=== PATIENT | male | born 1965 | race Caucasian/White ===

== ENCOUNTER 2016-08-26 21:31 | Inpatient (IN) ==
[2016-08-26] MEDS ORDERED: 0.9 % Sodium Chloride 1,000 ML IVC ONE (21:40)
[2016-08-26] MEDS ORDERED: *HR* Atropine Sulfate 1 MG/10 ML SYRINGE IVP STA (21:43)
--- NOTE | 2016-08-26 21:46 | Emergency Department Note ---
Disposition Clinical Impression: AV block, 3rd degree, Bradycardia, Weakness Disposition: Admitted As Inpatient Condition: Fair General Adult HPI - General Chief complaint: ED Seizure Stated complaint: seizure/low HR Time Seen by Provider: 08/26/16 21:40 Source: patient Mode of arrival: ambulatory Nursing Notes Reviewed: Yes Vital Signs Reviewed: Yes - History of Present Illness HPI Narrative: Patient brought in for evaluation after concern for seizure. He describes bending over to do some yard work when he became significantly lightheaded and dizzy. Patient ended up losing consciousness. Regain consciousness after a short time with some mild confusion and then lost consciousness again. The patient was brought to the emergency department he was found to have a heart rate in the low 30s. Patient complaining of fatigue and generalized weakness. Patient has no specific pain complaints. Patient's neck is nontender to palpation. Head is atraumatic. Patient has full range of motion of his neck with no neurologic symptoms. On the monitor the patient has what appears to be third-degree AV block. No previous cardiac history although he has undergone investigation including JERALD as well as exercise stress test in the past. Patient has no chest pain or shortness of breath this time. - Related Data Home Medications Medication Instructions Recorded Confirmed Albuterol Sulfate [Proair Hfa] 1 puff IH QID 08/26/16 08/26/16 Budesonide/Formoterol 80/4.5 1 puff IH BID 08/26/16 08/26/16 [Symbicort 80/4.5] Lacosamide [Vimpat] 100 mg PO DAILY 08/26/16 08/26/16 LevETIRAcetam [Keppra] 1,500 mg PO BID 08/26/16 08/26/16 Sertraline [Zoloft] 200 mg PO DAILY 08/26/16 08/26/16 Allergies Allergy/AdvReac Type Severity Reaction Status Date / Time No Known Allergies Allergy Verified 08/26/16 22:04 Review of Systems: CONSTITUTIONAL: No weight loss, fever, chills, weakness or fatigue. HEENT: Eyes: No visual changes. Ears, Nose, Throat: No hearing loss, difficulty talking or unable to swallow. SKIN: No rash or itching. CARDIOVASCULAR: No chest pain, chest pressure or chest discomfort. No palpitations or edema. RESPIRATORY: No shortness of breath, cough or sputum. GASTROINTESTINAL: No anorexia, nausea, vomiting or diarrhea. No abdominal pain or blood. GENITOURINARY: No burning on urination or hematuria. NEUROLOGICAL: No headache, dizziness, syncope, paralysis, ataxia, numbness or tingling in the extremities. No change in bowel or bladder control. MUSCULOSKELETAL: No muscle pain, back pain, joint pain or stiffness. Physical Exam General appearance: NAD, conversant Eyes: anicteric sclerae, moist conjunctivae; PERRL HENT: Atraumatic; oropharynx clear with moist mucous membranes and no mucosal ulcerations Neck: Normal inspection; Trachea midline; FROM, supple Lungs: CTA, with normal respiratory effort and no intercostal retractions CV: Bradycardia Abdomen: Soft, non-tender; no rebound or gaurding Extremities: No peripheral edema or extremity lymphadenopathy Skin: Normal temperature; no rash, ulcers or lesions Psych: Appropriate mood and affect Neuro: alert and oriented to person, place and time Course - Reevaluation(s) Reevaluation #1: Patient with worsening bradycardia as well as worsening weakness. Patient continues to be able to hold conversation. Patient will continue receiving fluids as his blood pressure intermittently drops without fluids wide open. Case is discussed with interventional cardiology. Patient will receive a temporary pacemaker prior to going to the ICU. - Consultations Consultation #1: Discussed with Dr. Faith. Patient will undergo temporary pacemaker. 1112 Dr. Faith had been called and notified of this case and upon its initial presentation. Patient was tolerating his heart rate in the mid 30s with only weakness. Blood pressure was 103 systolically. The plan was to continue to watch him. After receiving 2 L fluids the patient's heart rate has continued to drop and is now in the low 20s. Patient complaining of worsening dizziness and now lightheadedness. We discussed the case with Dr. Faith and the patient will undergo temporary pacemaker. Patient will be placed in the ICU and will be admitted to the hospitalist undergo further investigation of bradycardia. Consultation #2: Discussed with hospitalist. Patient accepted for further investigation of bradycardia Vital Signs Temperature 97.7 F 08/26/16 21:38 Pulse Rate 32 08/26/16 21:38 Respiratory Rate 16 08/26/16 21:38 Blood Pressure 100/69 08/26/16 21:38 O2 Sat by Pulse Oximetry 100 08/26/16 21:38 Temperature 97.7 F 08/26/16 21:38 Pulse Rate 22 08/26/16 23:50 Respiratory Rate 18 08/26/16 23:50 Blood Pressure 81/57 08/26/16 23:50 O2 Sat by Pulse Oximetry 100 08/26/16 23:50 Oxygen Delivery Oxygen Delivery Nasal Cannula Medical Decision Making - Lab Data Result diagrams: 08/26/16 21:55 08/26/16 21:55 Lab Results 08/26/16 08/26/16 08/26/16 Range/Units 21:55 21:55 21:55 WBC 6.2 (4.3-11.1) K/mcL RBC 5.41 (4.19-5.50) M/mcL Hgb 14.8 (12.9-16.9) g/dL Hct 44.2 (37.5-50.1) % MCV 81.7 L (83.0-100.0) fL MCH 27.4 L (28.0-33.3) pg MCHC 33.5 (31.6-35.5) g/dL RDW 15.0 H (11.5-14.5) % Plt Count 151 (140-400) K/mcL MPV 10.5 (9.4-12.4) fL Immature Gran % 0.8 (0-4) % Seg Neutrophils % 59.5 % Lymphocytes % 26.8 % Monocytes % 9.9 % Eosinophils % 2.7 % Basophils % 0.3 % Neutrophils # 3.7 (1.6-8.9) K/mcL Lymphocytes # 1.7 (0.6-4.6) K/mcL Monocytes # 0.6 (0.0-1.3) K/mcL Eosinophils # 0.2 (0.0-0.6) K/mcL Basophils # 0.0 (0.0-0.2) K/mcL PT (9.4-12.1) Seconds INR APTT (26.0-36.0) Seconds Sodium 139 (136-145) mEq/L Potassium 4.0 (3.5-4.5) mEq/L Chloride 107 (98-109) mEq/L Carbon Dioxide 21 (19-29) mEq/L BUN 12 (8-26) mg/dL Creatinine 1.12 (0.72-1.25) mg/dL Est GFR ( Amer) > 60 (> 60) Est GFR (Non-Af Amer) > 60 (> 60) BUN/Creatinine Ratio 11 (6-26) Glucose 118 H (70-99) mg/dL POC Glucose 107 H (58-89) Calculated Osmolality 289 (280-300) Calcium 8.8 (8.6-10.8) mg/dL Phosphorus 2.7 (2.3-4.7) mg/dL Magnesium 1.8 (1.6-2.6) mg/dL Total Bilirubin 1.1 (0.2-1.2) mg/dL AST 68 H (5-34) Units/L ALT 74 H (0-55) Units/L Alkaline Phosphatase 69 (38-126) Units/L Troponin I (0-0.03) ng/mL Serum Total Protein 7.5 (6.0-8.3) g/dL Albumin 3.9 (3.5-5.0) g/dL Globulin 3.6 H (2.4-3.5) g/dL Albumin/Globulin Ratio 1.1 (1.1-2.2) 08/26/16 08/26/16 Range/Units 21:55 22:48 WBC (4.3-11.1) K/mcL RBC (4.19-5.50) M/mcL Hgb (12.9-16.9) g/dL Hct (37.5-50.1) % MCV (83.0-100.0) fL MCH (28.0-33.3) pg MCHC (31.6-35.5) g/dL RDW (11.5-14.5) % Plt Count (140-400) K/mcL MPV (9.4-12.4) fL Immature Gran % (0-4) % Seg Neutrophils % % Lymphocytes % % Monocytes % % Eosinophils % % Basophils % % Neutrophils # (1.6-8.9) K/mcL Lymphocytes # (0.6-4.6) K/mcL Monocytes # (0.0-1.3) K/mcL Eosinophils # (0.0-0.6) K/mcL Basophils # (0.0-0.2) K/mcL PT 12.3 H (9.4-12.1) Seconds INR 1.1 APTT 33.3 (26.0-36.0) Seconds Sodium (136-145) mEq/L Potassium (3.5-4.5) mEq/L Chloride (98-109) mEq/L Carbon Dioxide (19-29) mEq/L BUN (8-26) mg/dL Creatinine (0.72-1.25) mg/dL Est GFR ( Amer) (> 60) Est GFR (Non-Af Amer) (> 60) BUN/Creatinine Ratio (6-26) Glucose (70-99) mg/dL POC Glucose (58-89) Calculated Osmolality (280-300) Calcium (8.6-10.8) mg/dL Phosphorus (2.3-4.7) mg/dL Magnesium (1.6-2.6) mg/dL Total Bilirubin (0.2-1.2) mg/dL AST (5-34) Units/L ALT (0-55) Units/L Alkaline Phosphatase (38-126) Units/L Troponin I 0.00 (0-0.03) ng/mL Serum Total Protein (6.0-8.3) g/dL Albumin (3.5-5.0) g/dL Globulin (2.4-3.5) g/dL Albumin/Globulin Ratio (1.1-2.2) Critical Care Time Critical Care Time: Yes Total Critical Care Time: 90 Attestation: Critical care performed: Time is exclusive of separately billable procedures. Time includes: direct patient care, patient reassessment, coordination of patient care, interpretation of data (laboratory data, radiology data, and respiratory data), review of patient's medical records, medical consultation and documentation of patient care. Procedures included in critical care time: Procedures excluded from critical care time: Attestation Statement - Attestation Attestation: I, Les Rice MD, personally evaluated this patient and discussed their management with the resident physician. I reviewed the resident's note and agree with the documented findings, medical decision making, and plan of care. 51-year-old male presents to the emergency department by ambulance after he had a seizure. Patient states that he bent over forward and became dizzy and this lasting he remembers. He does have a history of seizures he was incontinent of urine. He did not bite his tongue. When EMS arrived he was found to have a heart rate in the 30s. He denies any prior history of heart problems or low heart rate. No hypertension. He denies any chest pain. He was diaphoretic after the seizure but is not now. No shortness of breath. He complains that he just feels weak and dizzy. On arrival here patient had a heart rate around 30-32 with a systolic blood pressure around 105. On examination patient is a well-developed well-nourished male in no acute distress. He is alert and oriented 3. There is no cyanosis or diaphoresis. He has a superficial abrasion to the nose from the fall. No bite borrero on his tongue. Neck is supple and nontender with full range of motion. Chest is nontender to palpation. Breath sounds are clear and equal bilaterally. Heart is regular with a marked bradycardia. Abdomen soft and nontender with normal bowel sounds. No pedal edema. No gross focal neurological deficits. EKG shows a complete heart block with heart rate in the low 30s. Chest x-ray shows some increased pulmonary vascular congestion, possible CHF. Otherwise no acute abnormality. Labs reviewed. Troponin 0.00. Dr. Evans discussed the patient with the test inspection engineer, Dr. Faith, several times. Patient heart rate continued to drop in his blood pressure dropped down to around 88/52. He felt more weak and dizzy. Dr. Faith will come in to take him to the Entrepreneurial Finance Professor for a pacemaker. The hospitalist, Dr. Villatoro, was consulted and accepted admission of the patient.
[2016-08-26 22:03] LABS: Basophils % 0.3 %; Eosinophils # 0.2 K/mcL (0.0-0.6); Eosinophils % 2.7 %; Hematocrit 44.2 % (37.5-50.1); Hemoglobin 14.8 g/dL (12.9-16.9); Immature Granulocytes % 0.8 % (0-4); Lymphocytes # 1.7 K/mcL (0.6-4.6); Lymphocytes % 26.8 %; Mean Corpuscular HGB Conc 33.5 g/dL (31.6-35.5); Mean Corpuscular Hemoglobin 27.4 pg (28.0-33.3); Mean Corpuscular Volume 81.7 fL (83.0-100.0); Mean Platelet Volume 10.5 fL (9.4-12.4); Monocytes # 0.6 K/mcL (0.0-1.3); Monocytes % 9.9 %; Neutrophils # 3.7 K/mcL (1.6-8.9); Platelet Count 151 K/mcL (140-400); Red Blood Count 5.41 M/mcL (4.19-5.50); Segmented Neutrophils % 59.5 %
[2016-08-26 22:17] LABS: Alanine Aminotransferase 74 Units/L (0-55); Albumin 3.9 g/dL (3.5-5.0); Albumin/Globulin Ratio 1.1 (1.1-2.2); Alkaline Phosphatase 69 Units/L (38-126); Aspartate Amino Transferase 68 Units/L (5-34); BUN/Creatinine Ratio 11 (6-26); Bilirubin,Total 1.1 mg/dL (0.2-1.2); Blood Urea Nitrogen 12 mg/dL (8-26); Calcium 8.8 mg/dL (8.6-10.8); Carbon Dioxide 21 mEq/L (19-29); Chloride 107 mEq/L (98-109); Globulin 3.6 g/dL (2.4-3.5); Glucose 118 mg/dL (70-99); Magnesium 1.8 mg/dL (1.6-2.6); Osmolality,Calculated 289 (280-300); Phosphorous 2.7 mg/dL (2.3-4.7); Sodium 139 mEq/L (136-145); Total Protein 7.5 g/dL (6.0-8.3); eGFR For African Americans > 60 (> 60); eGFR For Non-African Americans > 60 (> 60)
[2016-08-26] MEDS ORDERED: 0.9 % Sodium Chloride 1,000 ML ONE ×3 (22:19→23:59)
[2016-08-26 23:32] LABS: INR 1.1; Prothrombin Time 12.3 Seconds (9.4-12.1)
[2016-08-26 23:34] LABS: Activated Partial Thrombo Time 33.3 Seconds (26.0-36.0)
[2016-08-26] MEDS ORDERED: Heparin 1,000 UNITS/500 mL NS 500 ML ONE (23:40)
--- NOTE | 2016-08-26 23:41 | Internal Med History&Physical ---
Date of Encounter: 08/27/16 Time of Encounter: 23:15 Assessment and Plan (1) AV block, 3rd degree Current visit: Yes Status: Acute Complete heart block with hemodynamic instability - possibly due to ischemia or cardiomyopathy Temporary pacemaker being inserted by intervention reproduction machine loader Dr. Faith IV atropine given the ED Cardiology evaluation for permanent pacemaker and left heart catheter Echocardiogram pending Troponin negative, trend troponin Chest x-ray - possible mild pulmonary edema otherwise negative repeat EKG and labs in a.m. (2) Hypotension Current visit: Yes Status: Acute Associated with third degree AV block Continue IV fluids Troponin negative, trend troponin Qualifiers: Hypotension type: unspecified hypotension type Qualified Code(s): I95.9 - Hypotension, unspecified (3) Seizure disorder Current visit: Yes Status: Acute Generalized seizure - not intractable without status epilepticus IV Keppra, seizure precautions Neurology consult (4) Asthma Current visit: Yes Status: Chronic Chronic, stable, not in exacerbation Continue albuterol and Symbicort Qualifiers: Asthma severity: mild intermittent Asthma complication type: uncomplicated Qualified Code(s): J45.20 - Mild intermittent asthma, uncomplicated (5) Depression Current visit: Yes Status: Acute On Zoloft at home Qualifiers: Depression Type: major depressive disorder Major depression recurrence: recurrent Active/Remission status: currently active Major depression episode severity: mild Qualified Code(s): F33.0 - Major depressive disorder, recurrent, mild (6) DVT prophylaxis Current visit: Yes Status: Acute Continue subcutaneous heparin and SCDs Internal Medicine - H&P: HPI Chief complaint: Seizure, dizziness Admitted From: Emergency Dept History of present illness: Mr. Sims is a 51 year old male with past medical history of seizure disorder, asthma and depression. He presents to the ED after having a seizure earlier in the evening. Patient was doing some yard work and states that he was bending over to sisal picker something when he felt lightheaded and dizzy. He loss consciousness for a few minutes. states she witnessed the patient having a seizure, and says he loss consciousness and also says she initially could not feel his pulse. Patient did regain consciousness and had some mild postictal confusion. He was then brought to the ED. Initial evaluation in the ED revealed heart rate in the low 30s. EKG revealed third-degree heart block. On examination patient is awake and alert. He seems to be fatigued and has generalized weakness. He is not in any distress. He is able to provide history , but is clearly fatigued. Denies chest pain and denies shortness of breath and denies palpitations or abdominal pain or nausea or vomiting. He has no other specific complaints. No obvious injuries or head or neck. Patient has also been hypotensive in the ED. The reproduction machine loader has been notified by the ED physician, and patient will receive a temporary pacemaker and then be admitted to the ICU. Patient states he has no history of any cardiac problems. also states that patient has not had similar problems in the past. Patient and his have been explained about guarded condition and plan of care. They understood and agreed. No unanswered questions. Patient is being admitted for seizures and complete heart block. He will be done to Senior User Experience Architect from the ED for temporary pacemaker. Patient will also require neurology consult. He will be on IV Keppra and on seizure precautions. CODE STATUS full code. Past Med Surg Social Fam HX - Past Medical History Medical history: asthma, seizures, other Psychiatric history: depression - Past Surgical History Surgical History: orthopedic, other (shoulder surgery) - Social History Smoking Status: Never smoker Alcohol use: occasionally Drug use: none Internal Medicine - H&P: Meds Albuterol Sulfate [Proair Hfa] 1 puff IH QID 08/26/16 [History] Budesonide/Formoterol 80/4.5 [Symbicort 80/4.5] 1 puff IH BID 08/26/16 [History ] Lacosamide [Vimpat] 100 mg PO DAILY 08/26/16 [History] LevETIRAcetam [Keppra] 1,500 mg PO BID 08/26/16 [History] Sertraline [Zoloft] 200 mg PO DAILY 08/26/16 [History] Allergies No Known Allergies Allergy (Verified 08/26/16 22:04) All Systems PM: A 10-system review of systems was performed and is negative for pertinent findings except as documented above in the HPI. - Constitutional Constitutional: as per HPI, fatigue, weakness - EENT Eyes: no blurry vision, no loss of vision - Cardiovascular Cardiovascular ROS IM: lightheadedness, syncope, no chest pain, no diaphoresis, no dyspnea, no dyspnea on exertion, no orthopnea, no palpitations - Respiratory Respiratory: no dyspnea, no hemoptysis, no dyspnea on exertion, no wheezing, no chest congestion - Gastrointestinal Gastrointestinal: no abdominal pain, no cramping, no diarrhea, no nausea, no vomiting - Musculoskeletal Musculoskeletal ROS IM: no arthralgias - Neurological Neurological ROS: convulsions, dizziness, weakness, no abnormal gait, no abnormal speech, no loss of vision, no tingling - Constitutional Vitals: Temp Pulse Resp BP Pulse Ox 97.7 F 25 22 69/41 100 08/26/16 21:38 08/26/16 23:37 08/26/16 23:37 08/26/16 23:37 08/26/16 23:37 General appearance: Present: mild distress, A&O X 3, pleasant, answers questions appropriately Exam: Generalized weakness and fatigue - Head Head exam: Present: atraumatic - Eye Eye exam: Present: EOMI - ENT ENT exam: Present: mucous membranes moist - Neck Neck exam general surgery: Present: full ROM, supple - Respiratory Respiratory exam: Present: CTAB. Absent: rales, rhonchi, wheezes - Cardiovascular Cardiovascular exam: Present: bradycardia, +S1, +S2, systolic murmur - GI/Abdominal GI/Abdominal exam: Present: soft. Absent: distended, guarding, tenderness - Extremities Exam Extremities exam: Present: radial pulses palpable and symetrical. Absent: cyanotic, pedal edema, tenderness - Neurological Exam Neurological exam: Present: alert, oriented X3, no focal deficits Internal Med - H&P Results - Labs CBC & Chem 7: 08/26/16 21:55 08/26/16 21:55
[2016-08-26] MEDS ORDERED: *HR* FentaNYL (PF) 250 MCG/5 ML VIAL ONE (23:42)
[2016-08-26] MEDS ORDERED: *HR* Midazolam HCl 5 MG/5 ML VIAL IVP ONE (23:42)
[2016-08-26] MEDS ORDERED: Ondansetron 4 MG/2 ML VIAL IVP PRN (23:43)
[2016-08-26] MEDS ORDERED: Naloxone 0.4 MG/ML INJ IVP PRN (23:43)
[2016-08-26] MEDS ORDERED: *HR* Heparin 10,000 UNIT/10 ML VIAL ONE (23:49)
[2016-08-26] MEDS ORDERED: *HR* Atropine Sulfate 1 MG/10 ML SYRINGE ONE (23:57)
--- NOTE | 2016-08-27 01:04 | Procedure Note ---
Date of procedure: 08/27/16 Pre-op diagnosis: complete AV block, chest pain Post-op diagnosis: same Procedure: temporary pacemaker Left heart cath with coronaries and LV gram Closure with Mynx device Anesthesia: local Surgeon: Christopher Faith Estimated blood loss (cc): 20 Pathology: none sent Condition: stable Disposition: ICU
--- NOTE | 2016-08-27 01:08 | Invasive Diagnostic Lab Proc ---
Name: Anibal Sims Date of Study: 08/27/2016 Date: 1965 Ht: 72.8in Medical Record#: [id number] Age: 51 Wt: 224.87lb Gender: Male BSA: 2.26 Order #: [id number] BMI: 29.8 Physicians Procedure Physician: Christopher Faith MD Referring MD: Referring MD: Staff Name Position Time In Raul Castro RN Monitor 12:01 AM Randee Thomas RT (R) Scrub 12:01 AM Kyle Rob RN Electric Meter Technician 12:01 AM Indications Indication Unstable Angina bradycardia Procedures Performed Procedure L HRT ARTERY/VENTRICLE ANGIO INS/RPL TEMP PM LEAD/CATH;SNGL Pre-Procedure Checklist Informed consent is complete signed and on chart. H\\T\\P is on chart. ID band is on and ID verified with patient. Pt not NPO for procedure and MD aware. The procedure was described for the patient and questions were answered. Blood Pressure: 95/55 ECG is on chart. Rhythm: Complete Heart Block Plan of Care Patient will tolerate the procedure without complications. Adequate level of comfort will be maintained. Hemodynamics will remain stable Patient will recover from procedure without complications. Respiratory function will be maintained. Cardiac rhythm will remain stable. Patient temperature will be maintained. Patient and/or family have verbalized understanding of the procedure. Patient Education Intravenous Access Time IV Size Location DC'd Fluid/Drip Rate Units RN 11:50 PM 18g 1 /" Patent On Arrival Lt Antecubital 0.9NaCl 25 ml/hr Raul Castro RN Allergies No Known Allergies Vital Signs Time BP (mmHg) HR (bpm) O2 Sat. RR (bpm) LOC 11:49 PM 95 / 55 28 100 % 16 5 = Fully awake and oriented or at pre-proc level 12:02 AM / % 4 = Oriented but drowsy 12:02 AM / % 4 = Oriented but drowsy 12:18 AM / % 4 = Oriented but drowsy 12:02 AM 120 / 66 30 100 % 16 12:06 AM 113 / 53 87 100 % 7 12:16 AM 110 / 59 30 95 % 19 12:18 AM 127 / 65 79 87 % 23 12:20 AM 110 / 68 69 94 % 10 12:23 AM 116 / 67 69 97 % 12 12:26 AM 118 / 62 67 98 % 18 12:29 AM 113 / 72 88 98 % 34 12:32 AM 103 / 65 70 99 % 23 12:35 AM 117 / 78 84 100 % 13 12:34 AM / % 4 = Oriented but drowsy Procedural Medications Time Medication Dose Units Method Given By 12:02 AM Oxygen 2 L/min nasal cannula Kyle Rob RN 12:10 AM Versed 1 mg Intravenous Kyle Rob RN 12:10 AM Fentanyl 50 mcg Intravenous Kyle Rob RN 12:11 AM Lidocaine 2% 20 ml Subcutaneous Christopher Faith MD 12:18 AM Oxygen 5 L/min nasal cannula Kyle Rob RN ASA Classification: CLASS II- Mild systemic disease (i.e. well-controlled diabetes, hypertension, asthma, cigarette smoking) Emergent Procedure: ASA score is assumed Jaqueline Score Preprocedure Postprocedure Activity 2- Moves 4 extremities sustained head lift Activity 2- Moves 4 extremities sustained head lift Circulation 2- SBP +/= 20 points of pre-anesthetic level Circulation 2- SBP +/= 20 points of pre-anesthetic level Consciousness 1- Responds to verbal stimuli drowsy Consciousness 2- Awake and alert oriented x 3 O2 Saturation 2- Able to maintain O2 satruation of 92% on room air O2 Saturation 2- Able to maintain O2 satruation of 92% on room air Respiratory 2- Able to deep breathe and cough well Respiratory 2- Able to deep breathe and cough well Total Score 9 Total Score 10 Contrast Agent: Isovue Diagnostic Contrast: 80 ml Total Contrast: 80 ml Fluoro Dose: 477 mGy Procedure Log Time Note Enter By 11:39 PM CathStat 12:01 AM Case Start 12:01 AM Vitals capture started with the following parameters, Patient=Adult, Interval=5 min, Initial Zsuemyxv=205 mmHg, Deflation Rate=5 mmHg, Cuff placed on Right Arm 12:01 AM [facility] AM Pt arrived to labor delivery rn 2 at 00:01 [facility] 12:01 AM Raul Castro RN Position: Monitor Time in: 00:01 [facility] 12:01 AM Randee Thomas RT (R) Position: Scrub [facility]: [facility]:01 [facility] 12:01 AM Kyle Rob RN Position: Electric Meter Technician Time in: 00:01 [facility] 12:01 AM Patient charges- Angio tray pack, Navilyst 3mm J, Pulse Oximetry and ACIST tubing and transducer [facility] 12:01 AM Hair removed from procedure site in emergency department using clippers. Bilateral groin prepped with Chloraprep by Erica Thomas safety strap applied then patient was draped. Skin intact. csmith 12:01 AM Physician arrived 00:01 [facility] 12:01 AM ASA Class CLASS II- Mild systemic disease (i.e. well-controlled diabetes, hypertension, asthma, cigarette smoking) [facility] 12:02 AM Meet and greet completed [facility] 12:02 AM Time: 00:02 Oxygen on at 2 L/min per nasal cannula by Kyle Rob RN [facility] 12:02 AM Time: 00:02 Patient comfortable and pain free: No [facility] 12:02 AM Time: 00:02LOC: 4 = Oriented but drowsy csmith 12:02 AM HR=30 bpm, HVBP=974/66 mmhg, TxA4=256.0 %, Resp=16 B/min, Comment=chb 12:06 AM HR=87 bpm, NQXL=910/53 mmhg, GsO3=072.0 %, Resp=7 B/min, Comment=chb 12:10 AM Time out performed according to hospital policy [facility] 12:10 AM Time: 00:10 Versed 1 mg Intravenous Given by Kyle Rob RN [facility] 12:10 AM Time: 00:10 Fentanyl 50 mcg Intravenous Given by Kyle Rob RN [facility] 12:11 AM Time: 00:11 20 ml Lidocaine 2% to right groin Subcutaneous Given by Christopher Faith MD [facility] 12:12 AM [ Start or Stop Vital ] 12:13 AM Access obtained by percutaneous puncture. 6Fr 12cm Fast Cath sheath placed in right Femoral vein. [id number] [facility] 12:13 AM Access obtained by percutaneous puncture. 5Fr 10cm Terumo [place] sheath placed in right Femoral artery. [id number] [facility] 12:13 AM Vitals capture stopped. 12:13 AM Vitals capture started with the following parameters, Patient=Adult, Interval=3 min, Initial Rqqtsymb=567 mmHg, Deflation Rate=5 mmHg, Cuff placed on Right Arm 12:14 AM PstProc:Bard Bipolar Pacing Catheter Temp pacer inserted into right femoral vein [facility] 12:14 AM Pressure channel 1 zeroed. 12:16 AM HR=30 bpm, BUZC=272/59 mmhg, SpO2=95.0 %, Resp=19 B/min, Comment=chb 12:17 AM PstProc: Temp pacer on. csmith 12:18 AM HR=79 bpm, SUKW=914/65 mmhg, SpO2=87.0 %, Resp=23 B/min, Comment=paced 12:18 AM PstProc: Temp pacer turned on, rate 70 ppm, mA 3, sensitivity 2mv csmith 12:18 AM good capture, loss of 100% capture at 0.4 ma, rate of 70 csmith 12:18 AM Time: 00:02LOC: 4 = Oriented but drowsy csmith 12:18 AM Time: 00:02 Patient comfortable and pain free: Yes [facility] 12:19 AM Time: 00:18 Oxygen on at 5 L/min per nasal cannula by Kyle Rob RN [facility] 12:20 AM Recorded Pressure: Ao, HR=71, Condition=Condition 1 (Aorta) Ao 108/73/86 12:20 AM 5Fr FL 4 catheter inserted over the wire [facility] csmith 12:20 AM 0.035 145cm Navilyst 3mmJ wire [id number] csmith 12:20 AM HR=69 bpm, BWXI=025/68 mmhg, SpO2=94 %, Resp=10 B/min 12:21 AM LCA angiography performed in multiple views. csmith 12:23 AM HR=69 bpm, DLUN=924/67 mmhg, SpO2=97.0 %, Resp=12 B/min, Comment=paced 12:23 AM Catheter removed csmith 12:23 AM Recorded Pressure: Ao, HR=74, Condition=Condition 1 (Aorta) Ao 109/71/86 12:24 AM RCA angiography performed in multiple views. csmith 12:24 AM Coronary Dominance: right csmith 12:25 AM Catheter removed csmith 12:26 AM Recorded Pressure: LV, HR=74, Condition=Condition 1 (Left Ventricle) LV 117/13/25 12:26 AM HR=67 bpm, RWQF=525/62 mmhg, SpO2=98.0 %, Resp=18 B/min, Comment=paced 12:27 AM Catheter selectively placed in left ventricle csmith 12:27 AM Bolus angiogram of left Ventricle complete: 10 ml/sec for a total of 30 mls csmith 12:27 AM Recorded Pressure: LV, Ao, HR=70, Condition=Condition 1 (Left Ventricle) LV 118/17/29, (Aorta) Ao 110/67/83 12:28 AM Catheter removed csmith 12:29 AM Bolus angiogram of right Femoral complete: 4 ml/sec for a total of 7 mls csmith 12:29 AM HR=88 bpm, YTZZ=985/72 mmhg, SpO2=98.0 %, Resp=34 B/min, Comment=paced 12:32 AM HR=70 bpm, DIWJ=271/65 mmhg, SpO2=99.0 %, Resp=23 B/min, Comment=paced 12:33 AM Time: 00:18 Patient comfortable and pain free: Yes csmith 12:34 AM Time: 00:18LOC: 4 = Oriented but drowsy csmith 12:35 AM PstProc: Sheath(s) sutured in due to Temporary Pacer. csmith 12:35 AM HR=84 bpm, KGNU=719/78 mmhg, GxF7=936 %, Resp=13 B/min 12:35 AM Procedure completed at 00:35 csmith 12:35 AM Sign out completed: Radiation Dose 477 mGy Fluoro Time: 2.9 Isovue 370 - 200ml contrast 80 ml given by Christopher Faith MD. Complications: NoneCardiac Rehab Consult needed: NoConfirmed administered medications: Yes csmith 12:35 AM Isovue 370 - 200ml,1 Bottle(s) used. csmith 12:35 AM venous sheath left in place to be pulled on floor/holding area csmith 12:36 AM Arterial sheath pulled, Mynx closure device used and was Successful [id number] S/N. csmith 12:36 AM Post ECG Paced csmith 12:36 AM Post Blood Pressure 117/78 csmith 12:36 AM 00:36 Post Pulses Bilateral DP 1+ csmith 12:36 AM Information taught Temporary pacemaker, Cardiac Cath, and Mynx csmith 12:36 AM Education needs Responsibilities of Patient in Care csmith 12:36 AM Learning barriers :None csmith 12:36 AM Education Methods Verbal csmith 12:36 AM Education evaluation Able to repeat information csmith 12:37 AM Site status No bleeding/hematoma - Rt Groin as reported by Randee Thomas RT (R) at 00:36 csmith 12:37 AM Opsite applied csmith 12:37 AM Plavix, Effient or Brilinta given No csmith 12:37 AM Family placed in consult room. csmith 12:39 AM PstProc: Pacer is inserted at 67 cm csmith 12:49 AM Time: 00:34LOC: 4 = Oriented but drowsy csmith 12:49 AM Time: 00:33 Patient comfortable and pain free: Yes csmith 12:50 AM Report given to Palmer ALMAGUER Pt will be taken to ICU Room #5. csmith 12:52 AM Patient out of room: 00:52 csmith Complications Complication None Hemodynamics Pressures Site Systolic/A Wave Diastolic/V Wave Mean AO 108 73 86 AO 109 71 86 LV 117 13 25 LV 118 17 29 AO 110 67 83 Post Procedure Information Blood Pressure: 117/78 mmHg Rhythm: Paced Post procedural instructions were given Closure Device Time Device Success/Fail 08/27/2016 12:36:00 AM MynxGrip Successful Site Checks Time Location Status Staff Sheath In? Note 12:36 AM Rt Groin No bleeding/hematoma Randee Thomas RT (R) Pulses Time Site Pre-Procedure Post-Procedure Note 12:36:00 AM Bilateral DP 1+ Updated by Raul Castro RN on 08/27/2016 12:52:20 AM electronically signed on 08/27/2016 1:01:20 AM with status of Final
--- NOTE | 2016-08-27 01:12 | Cardiology Consult Note ---
Date of Encounter: 08/27/16 Time of Encounter: 01:00 Assessment and Plan Discussion w patient/family: The assessment and plan as outlined above was discussed with the patient and/or family members who expressed understanding and agreement. All questions were answered. Thank you for involving us in the care of your patient. Please call with any questions. History of Present Illness Consult date: 08/27/16 Consult reason: bradycardia and chest pain Chief complaint: above History of present illness: Mr. Sims is a 51 year old male seen in the ED with bradycardia to 22/min with weakness and dizziness and syncope. Was in Complete AV block. Has been labelled as seizure disorder and treated with Keppra for the past 3 years. Recently another med was added. Patient admits to tapering the Keppra recently. Has two of over 15 episodes where complete loss of consciousness occurred. Usually is able to hear activity around him but could not respond. Tonight loss urinary continence. Had some chest pain and pressure so in addition to the pacemaker left heart cath was performed. The coronaies were with right dominance. . LV size and function normal with EF 55% Pacer captures to MA 0.03 and left at rate 70 / min and MA 3.0. Seems likely will need permanent pacemaker. Past Med Surg Social Fam HX - Past Medical History Medical history: asthma, seizures, other Psychiatric history: no psych history - Social History Smoking Status: Never smoker Alcohol use: occasionally Drug use: none Medications and Allergies Albuterol Sulfate [Proair Hfa] 1 puff IH QID 08/26/16 [History] Budesonide/Formoterol 80/4.5 [Symbicort 80/4.5] 1 puff IH BID 08/26/16 [History ] Lacosamide [Vimpat] 100 mg PO DAILY 08/26/16 [History] LevETIRAcetam [Keppra] 1,500 mg PO BID 08/26/16 [History] Sertraline [Zoloft] 200 mg PO DAILY 08/26/16 [History] Allergies No Known Allergies Allergy (Verified 08/26/16 22:04) All Systems Review: A 10-system review of systems was performed and is negative for pertinent findings except as documented above in the HPI. Physical Examination Vital Signs, Last 4 Hours Pulse Resp BP Pulse Ox 08/26/16 23:50 22 20 0/0 100 08/26/16 23:42 28 16 95/55 100 08/26/16 23:37 25 22 69/41 100 08/26/16 23:31 25 22 70/40 100 08/26/16 23:22 25 20 84/46 100 Results 08/26/16 21:55 08/26/16 21:55 Consult Discharge Plan - Plan Referrals: Jethro Garcia [Primary Care Provider] -
--- NOTE | 2016-08-27 01:29 | Pre-Sedation Evaluation ---
Pre-sedation evaluation - Pre-sedation checklist Date of procedure: 08/27/16 Procedure: left cath and pacemaker Recent Vitals: Last Vital Signs Temp 97.7 F 08/26/16 21:38 Pulse 22 08/26/16 23:50 Resp 20 08/26/16 23:50 BP 0/0 08/26/16 23:50 Pulse Ox 100 08/26/16 23:50 H&P (including ROS) documented in medical record: Yes Dietary Status: NPO after Midnight Airway Assessment: Patient can open mouth completely, TMJ function normal Dentition: No loose teeth or bridges Possible difficult airway: No ASA Classification *see protocol: CLASS II-Mild systemic disease Plan of Care: Pt appropriate candidate for procedure/moderate/conscious sedation
[2016-08-27 01:31] LABS: Hemoglobin A1C 5.2 %
--- NOTE | 2016-08-27 01:32 | Invasive Diagnostic Lab ---
Name: Anibal Sims Date of Study: 08/27/2016 Date: 1965 Ht: 185.0 cm /72.8 in Medical Record#: [id number] Age: 51 Wt: 102. kg / 224.87 lb Account/Order#: [id number] Gender: Male BSA: 2.26 Order #: [id number] Fluoro Dose: 477 mGy BMI: 29.8 Procedure Physician: Christopher Faith MD Referring MD: Referring MD: Procedures Performed: LEFT HEART CATH TEMP PM INSERTION - SINGLE Indications: Unstable Angina, bradycardia 3rd degree av block Impressions: Coronary arteries are angiographically normal right dominant The left ventricle is normal and has normal contractility EF 55% Successful placement of temporary pacemaker through rt femoral vein Recommendations: Optimal medical therapy of patient's disease. Aggressive risk factor modification. History/Risk Factors: asthma seizures Procedure Access obtained in the right Femoral artery by percutaneous puncture Access obtained in the right Femoral vein. A 6 Mongolian venous sheath was inserted into the right femoral vein. A 5 Mong[place]ian balloon tipped temporary transvenous pacemaker catheter was passed to the apex of the right ventricle under fluoroscopic guidance. Complications: None Contrast: Isovue 80ml Closure Device: MynxGrip Hemodynamics: Pressures Site Systolic/ A Wave Diastolic/ V Wave End Diastolic/ Mean HR AO 108 73 86 71 AO 109 71 86 74 LV 117 13 25 74 LV 118 17 29 71 AO 110 67 83 69 LV Ventriculography Ejection Method: LV Gram Ejection Fraction: 55% Wall Motion: SARAH Anterobasal Normal Anterolateral Normal Apical: Normal Inferoapical Normal Inferobasal Normal Coronary Dominance: right Lesion Findings/Interventions * Left Main Coronary Artery The LMCA is angiographically free of disease. * Left Anterior Descending The LAD is angiographically free of disease. The 1st Diagonal is angiographically free of disease. * Circumflex The Circumflex is angiographically free of disease. The 1st Marginal is angiographically free of disease. * Right Coronary Artery The RCA is angiographically free of disease. The Right PDA is angiographically free of disease. Updated by Raul Castro RN on 08/27/2016 12:45:13 AM Christopher Faith MD electronically signed on 08/27/2016 1:25:42 AM with status of Final
[2016-08-27] MEDS: 0.9 % Sodium Chloride 1,000 ML IVC SCH ×3 (02:07→23:42)
[2016-08-27 06:49] LABS: Basophils % 0.2 %; Eosinophils # 0.1 K/mcL (0.0-0.6); Eosinophils % 0.9 %; Hematocrit 38.2 % (37.5-50.1); Immature Granulocytes % 0.7 % (0-4); Lymphocytes % 16.8 %; Mean Corpuscular Volume 82.2 fL (83.0-100.0); Mean Platelet Volume 10.4 fL (9.4-12.4); Monocytes # 0.5 K/mcL (0.0-1.3); Monocytes % 8.4 %; Neutrophils # 4.2 K/mcL (1.6-8.9); Platelet Count 139 K/mcL (140-400); Red Blood Count 4.65 M/mcL (4.19-5.50); Red Cell Distribution Width 15.2 % (11.5-14.5)
[2016-08-27] MEDS: *HR* Heparin 5,000 UNIT/ML VIAL SQ SCH ×2 (06:59→17:22)
[2016-08-27] MEDS: Famotidine 20 MG/2 ML VIAL IVP SCH ×2 (07:02→17:22)
[2016-08-27 07:05] LABS: BUN/Creatinine Ratio 12 (6-26); Blood Urea Nitrogen 11 mg/dL (8-26); Carbon Dioxide 24 mEq/L (19-29); Chloride 110 mEq/L (98-109); Chol/HDL Ratio 7.8 (0-4.9); Cholesterol 156 mg/dL (< 200); Glucose 106 mg/dL (70-99); HDL Cholesterol 20 mg/dL (40-59); LDL Cholesterol,Calculated 82 mg/dL (0-99); Osmolality,Calculated 292 (280-300); Potassium 4.1 mEq/L (3.5-4.5); Sodium 141 mEq/L (136-145); Triglycerides 271 mg/dL (< 150); eGFR For African Americans > 60 (> 60); eGFR For Non-African Americans > 60 (> 60)
[2016-08-27] MEDS: Budesonide/Formoterol 80/4.5 MDI IH SCH ×2 (09:54→22:10)
--- NOTE | 2016-08-27 10:34 | Event Note ---
Date of Encounter: 08/27/16 Time of Encounter: 10:00 - Cardiology Event Note Laboratory Tests 08/26/16 08/26/16 08/26/16 21:55 21:55 21:55 INR 1.1 Creatinine Est GFR (Non-Af Amer) Troponin I B-Natriuretic Peptide 39 TSH 5.267 H 08/26/16 08/27/16 08/27/16 22:48 05:45 05:45 INR Creatinine 0.90 Est GFR (Non-Af Amer) > 60 Troponin I 0.00 0.03 B-Natriuretic Peptide TSH Patient seen this morning with at bedside. Currently sinus rhythm in the 70s. Right groin temporary pacer dressing dry and intact. He currently denies any chest pain, shortness of breath, palpitations. Reports 14 episodes over the past 3 years of episodes of dizziness with seizure-like activity and intermittent loss of bowel or bladder. Report symptoms yesterday similar, however this time had syncope as well. Patient reports currently weaning down his Keppra and has been started on Vimpat. Also, taking Zoloft. Status post left heart catheterization with no intervention warranted. Temporay pacer inserted d/t bradycardia 20's with 3 degree AVB, dizziness, weakness, syncope, CP. Medications reviewed with Dr. Barone on Up To Date-- Zoloft (<1%, postmarketing, and/or case reports: atrial arrhythmia, atrioventricular block) and Vimpat (<1% , postmarketing, and/or case reports: atrial fibrillation, atrial flutter, atrioventricular block, bradycardia; Cardiovascular effects: Lacosamide may prolong DC interval; second degree and complete AV block has also been reported) .
--- NOTE | 2016-08-27 12:39 | Neurology - Consult Note ---
Date of Encounter: 08/27/16 Time of Encounter: 12:37 Assessment and Plan (1) Seizure disorder Current Visit: Yes Status: Acute Patient carries diagnosis of seizure disorder and has been treated with neurologist and suppose to see his primary neurologist next Sunday. He has been taking keppra since last 7 months and has been experiencing side effects and is in the process of changing to a different seizure medication. Due to the concern of vimipat causing 3th degree AV block, will hold off the use of vimpat and keep him on Levetiracetam 750mg bid for now. he is to follow up with his primary neurologist soon to discuss further options. Patient does not want dilantin or depakote and agrees with holding off vimpat and keep on keppra 750mg bid. Patient is to follow up with his primary neurologist at [facility] and they seem to already have a plan for him. Next step is oil heaterman EEG monitoring, which was already discussed with the patient. No further testing will be recommended, except routine EEG tomorrow. History of Present Illness Chief complaint: passing out HPI: Mr. Sims is a 51 year old male with PMH significant for seizure disorder who presented with an episode of passing out with jerking activity and found to have complete AV block with heart rate in the 30's. Patient carries diagnosis of seizure disorder and has seen neurologist at [facility]. He started experiencing seizure like activity since 04/2013. describes the episodes as eyes rolling back, with arms tensing up at the elbow lasting few seconds in duration. The episodes are of different intensity and he has had two episodes including this current one that are more intense and with more prolonged mental status changes. This time during the episode he was looking ' purple' per his . He has been taking keppra since 02/2016 by his neurologist. Has been experiencing some side effects from keppra and was started vimpat since July/2016 with the intention to taper off the use of Levetiracetam. he is now taking Levetiracetam 750mg bid. Discussed with professional bass fisherman who concerns for vimpat causing AV block and suggested to discontinue Vimpat. Past Med Surg Social Fam HX - Past Medical History Medical history: asthma, seizures, other Psychiatric history: depression - Past Surgical History Surgical History: orthopedic, other - Social History Smoking Status: Never smoker Alcohol use: occasionally Drug use: none Medications and Allergies Albuterol Sulfate [Proair Hfa] 1 puff IH QID 08/26/16 [History] Budesonide/Formoterol 80/4.5 [Symbicort 80/4.5] 1 puff IH BID 08/26/16 [History ] Lacosamide [Vimpat] 100 mg PO DAILY 08/26/16 [History] LevETIRAcetam [Keppra] 1,500 mg PO BID 08/26/16 [History] Sertraline [Zoloft] 200 mg PO DAILY 08/26/16 [History] Allergies No Known Allergies Allergy (Verified 08/26/16 22:04) All Systems: A 10-system review of systems was performed and is negative for pertinent findings except as documented above in the HPI. Physical Examination - Vital Signs Vital Signs: Initial Vital Signs Temp Pulse Resp BP Pulse Ox 97.7 F 32 16 100/69 100 08/26/16 21:38 08/26/16 21:38 08/26/16 21:38 08/26/16 21:38 08/26/16 21:38 - Constitutional General appearance: comfortable - Neurologic Sensorimotor examination: intact Detailed motor examination: grossly full strength in all extremities Motor examination - right side: 5/5: deltoids, biceps, triceps, wrist flexion, wrist extension, sighter, hip flexors, tibialis Anterior, quadriceps, toe extension (EHL), plantarflexion Motor examination - left side: 5/5: deltoids, biceps, triceps, wrist flexion, wrist extension, hip flexors, sighter, quadriceps, tibialis Anterior, toe extension (EHL), plantarflexion Detailed sensory examination: intact Reflex and gait examination: intact Reflexes: Biceps: 1+, Triceps: 1+, Brachioradialis: 1+, Patella: 1+, Achilles: 1 + Mental Status Examination: awake, alert, oriented to person, oriented to place, oriented to time, follows commands appropriately, answers questions appropriately, no agnosia, no aphasia, no aproxia Cranial nerve examination: PERRL, EOMI, visual alcazar intact, corneal reflexes brisk symmetrically, sensory to face intact, mastication intact, no facial asymmetry is present, no dysarthria, hearing is intact symmetrically, soft palate elevates bilaterally upon phonation, gag reflex intact, flexes SCM and trapezius muscles symmetrically with full power, tongue protrudes midline, no atrophy or facial fasiculations present Cerebellar examination: no dysmetria, performs finger to nose and heel to vasquez symmetrically without ataxia, no gait ataxia, no truncal ataxia, no difficulty with rapid alternating movements Results - Laboratory Findings CBC and BMP: 08/27/16 05:45 08/27/16 05:45 Abnormal lab findings: Abnormal lab results MCV 82.2 fL (83.0-100.0) L 08/27/16 05:45 RDW 15.2 % (11.5-14.5) H 08/27/16 05:45 Plt Count 139 K/mcL (140-400) L 08/27/16 05:45 PT 12.3 Seconds (9.4-12.1) H 08/26/16 21:55 Chloride 110 mEq/L (98-109) H 08/27/16 05:45 Glucose 106 mg/dL (70-99) H 08/27/16 05:45 POC Glucose 113 (58-89) H 08/27/16 01:06 Calcium 8.0 mg/dL (8.6-10.8) L 08/27/16 05:45 AST 68 Units/L (5-34) H 08/26/16 21:55 ALT 74 Units/L (0-55) H 08/26/16 21:55 Troponin I 0.07 ng/mL (0-0.03) H* 08/27/16 11:50 Globulin 3.6 g/dL (2.4-3.5) H 08/26/16 21:55 Triglycerides 271 mg/dL (< 150) H 08/27/16 05:45 VLDL Cholesterol, Calc 54 mg/dL (< 31) H 08/27/16 05:45 HDL Cholesterol 20 mg/dL (40-59) L 08/27/16 05:45 Cholesterol/HDL Ratio 7.8 (0-4.9) H 08/27/16 05:45 TSH 5.267 mcIU/mL (0.350-4.840) H 08/26/16 21:55 Consult Discharge Plan - Plan Referrals: Jethro Garcia [Primary Care Provider] -
--- NOTE | 2016-08-27 13:09 | Internal Med Progress Note ---
Date of Encounter: 08/27/16 Time of Encounter: 13:07 - Assessment and plan (1) AV block, 3rd degree Current Visit: Yes Status: Acute Assessment and plan: likely caused by Vimpat Hold Vimpat temporary pacemaker per cardiology Cardiac cath without findings consider permanent pacemaker if not improving (2) Hypotension Current Visit: Yes Status: Acute Assessment and plan: Likely secondary to symptomatic bradycardia due to complete heart block with hemodynamic instability Chest x-ray - possible mild pulmonary edema Qualifiers: Hypotension type: unspecified hypotension type Qualified Code(s): I95.9 - Hypotension, unspecified (3) Seizure disorder Current Visit: Yes Status: Acute Assessment and plan: Continue Keppra IV, follow neurology recommendations (4) Weakness Current Visit: Yes Status: Acute (5) Asthma Current Visit: Yes Status: Chronic Assessment and plan: Stable, no exacerbation Qualifiers: Asthma severity: mild intermittent Asthma complication type: uncomplicated Qualified Code(s): J45.20 - Mild intermittent asthma, uncomplicated (6) Depression Current Visit: Yes Status: Acute Assessment and plan: takes Zoloft at home, may cause arrhythmias Consider resuming it if possible Qualifiers: Depression Type: major depressive disorder Major depression recurrence: recurrent Active/Remission status: currently active Major depression episode severity: mild Qualified Code(s): F33.0 - Major depressive disorder, recurrent, mild - Subjective Interval history: Denies any CP or SOB, no fever, no no dysuria, has not had a seizure since admission , says he is not very compliant with his meds - Constitutional Vitals: Temp Pulse Resp BP Pulse Ox 98.3 F 76 12 117/75 96 08/27/16 11:42 08/27/16 12:00 08/27/16 12:00 08/27/16 12:00 08/27/16 12:00 General appearance: Present: mild distress, A&O X 3, pleasant, answers questions appropriately - Head Head exam: Present: atraumatic, normocephalic - Eye Eye exam: Present: PERRL, conjuntiva pink, sclera anicteric Pupils: Present: PERRL - Neck Neck exam general surgery: Present: supple, trachea midline. Absent: lymphadenopathy - Respiratory Respiratory exam: Present: CTAB. Absent: accessory muscle use, rales, rhonchi, wheezes - Cardiovascular Cardiovascular exam: Present: RRR, +S1, +S2. Absent: diastolic murmur, gallop, rubs, systolic murmur - GI/Abdominal GI/Abdominal exam: Present: normal bowel sounds, soft, no peritoneal signs. Absent: distended, tenderness - Extremities Exam Extremities exam: Present: warm, radial pulses palpable and symetrical. Absent : calf tenderness, cyanotic, pedal edema Additional comments: right groin temporary pacer, no hematoma - Neurological Exam Neurological exam: Present: CN II-XII intact, oriented X3, no focal deficits. Absent: pronater drift, facial droop, speech deficit - Skin Skin exam: Present: dry, intact Internal Medicine: Result - Labs CBC & Chem 7: 08/27/16 05:45 08/27/16 05:45 Labs: Short CBC 08/27/16 Range/Units 05:45 WBC 5.7 (4.3-11.1) K/mcL Hgb 13.0 D (12.9-16.9) g/dL Hct 38.2 (37.5-50.1) % Plt Count 139 L (140-400) K/mcL Neutrophils # 4.2 (1.6-8.9) K/mcL BMP 08/27/16 05:45 Sodium 141 Potassium 4.1 Chloride 110 H Carbon Dioxide 24 BUN 11 Creatinine 0.90 Glucose 106 H Calcium 8.0 L Cardiac Enzymes 08/27/16 08/27/16 Range/Units 05:45 11:50 Troponin I 0.03 0.07 H* (0-0.03) ng/mL - ABG Interpretation ABG results: PT/INR, D-dimer PT 12.3 Seconds (9.4-12.1) H 08/26/16 21:55 Consult Discharge Plan - Plan Referrals: Jethro Garcia [Primary Care Provider] -
--- NOTE | 2016-08-27 14:55 | Electrocardiograph Report ---
[place] [id number] Test Date: 2016-08-26 Pat Name: Anibal Sims Department: 103 Room: [facility] Gender: M [place]: IVA : 1965 Requested By: Willy Cochran Order Number: [id number] Reading MD: Bisi Barone Measurements Intervals [place] Rate: 24 P: [place]: 0 QRS: -44 QRSD: 137 T: -65 QT: 587 QTc: 380 Interpretive Statements THIRD DEGREE AVB VENTRICULAR ESCAPE Electronically Signed On 08-27-2016 14:53:38 EDT by Bisi Barone
--- NOTE | 2016-08-27 14:58 | Electrocardiograph Report ---
[address] [place] [address] Test Date: 2016-08-26 Pat Name: Anibal Sims Department: 103 Room: [facility] Gender: M Clinical Laboratory Technologist: IVA : 1965 Requested By: Nikolay Evans Order Number: [id number] Reading MD: Bisi Barone Measurements Intervals [place] Rate: 31 P: [place]: 0 QRS: 122 QRSD: 158 T: -62 QT: 614 QTc: 489 Interpretive Statements CONSIDER THIRD DEGREE HEART BLOCK WITH VENTRICULAR ESCAPE Electronically Signed On 08-27-2016 14:56:50 EDT by Bisi Barone
[2016-08-27] MEDS: levETIRAcetam 250 MG TABLET PO SCH (17:22)
[2016-08-27 19:51] LABS: Bilirubin,Urine Negative (Negative); Blood,Urine Negative (Negative); Clarity,Urine Clear (Clear); Color,Urine Yellow (Yellow); Glucose,Urine (UA) Normal (Normal); Ketones,Urine Negative (Negative); Leukocyte Esterase,Urine Negative (Negative); Nitrite,Urine Negative (Negative); Protein,Urine Trace mg/dL (Neg-Trace); Urobilinogen,Urine Normal (Normal)
[2016-08-27 19:54] LABS: Amphetamine Screen,Urine Negative ng/mL (Cutoff=1000); Barbiturate Screen,Urine Negative ng/mL (Cutoff=200); Benzodiazepines Screen,Urine Positive ng/mL (Cutoff=200); Cannabinoid Screen,Urine Negative ng/mL (Cutoff = 50); Cocaine Screen,Urine Negative ng/mL (Cutoff= 300); Opiate Screen,Urine Negative ng/mL (Cutoff=300); Phencyclidine Screen,Urine Negative ng/mL (Cutoff=25)
[2016-08-27] MEDS ORDERED: Acetaminophen 325 MG TABLET PO PRN (20:53)
[2016-08-28 03:20] LABS: Hematocrit 37.1 % (37.5-50.1); Hemoglobin 12.4 g/dL (12.9-16.9); Mean Corpuscular HGB Conc 33.4 g/dL (31.6-35.5); Mean Corpuscular Volume 83.7 fL (83.0-100.0); Mean Platelet Volume 10.4 fL (9.4-12.4); Red Blood Count 4.43 M/mcL (4.19-5.50); Red Cell Distribution Width 15.1 % (11.5-14.5)
[2016-08-28 03:33] LABS: BUN/Creatinine Ratio 10 (6-26); Blood Urea Nitrogen 10 mg/dL (8-26); Calcium 8.5 mg/dL (8.6-10.8); Carbon Dioxide 25 mEq/L (19-29); Chloride 109 mEq/L (98-109); Glucose 103 mg/dL (70-99); Osmolality,Calculated 289 (280-300); Potassium 3.6 mEq/L (3.5-4.5); Sodium 140 mEq/L (136-145); eGFR For African Americans > 60 (> 60); eGFR For Non-African Americans > 60 (> 60)
[2016-08-28] MEDS: levETIRAcetam 250 MG TABLET PO SCH (05:32)
[2016-08-28] MEDS: *HR* Heparin 5,000 UNIT/ML VIAL SQ SCH (05:32)
[2016-08-28] MEDS: Famotidine 20 MG/2 ML VIAL IVP SCH (05:33)
--- NOTE | 2016-08-28 10:51 | Cardiology Progress Note ---
Date of Encounter: 08/28/16 Time of Encounter: 08:00 Assessment and Plan (1) Seizure disorder Current Visit: Yes Status: Chronic Per Cardiology: Patient with reported 14 different seizure episodes roughly over past 3 years. Follows with Neurology in [place]. Recently decreased dose of Keppra d/t suspected side effects and initiation of Vimpat over the past 30 days. Patient has patient outpatient neurology appointment and further testing scheduled for this week. Patient and report symptoms from this previous week and similar to previous events with positive seizure-like activity and loss of bowel and bladder. Patient experienced weakness, chest tightness and syncope. No further recurrence noted during hospitalization. Neurology following. Currently off Zoloft and Vimpat. EEG this am: "Impression: This is essentially a normal awake and asleep EEG. Clinical Correlation: Normal EEGs, however, do not exclude epilepsy. Clinical correlation advised". Further management per Neuro. (2) AV block, 3rd degree Current Visit: Yes Status: Acute Per Cardiology: Patient presented with bradycardia, 3rd degree AVB. Per records, cath showed no signifcant lesions requiring intervention (normal coronary angiogram). Has temporary pacer in place with setting at 60 bpm, currently SR in 70's, tele shows no significant events, rare v pacing during am hours. Off Vimpat and Zoloft. Per discussion with pharmacy, 1/2 life 13 hrs. for Vimpat. See previous notes regarding suspicion of Zoloft and/or Vimpat being linked to AVB. Will continue to washout medication. Will discuss and review with Dr. Ragland, anticipate will dc temp pacer today and monitor tele. Will attempt to obtain medical records fro [facility]. If has recurrence off meds may warrant PPM. If no recurrence, will discuss with Dr. Ragland possible ECAT monitor at DC vs. consideration of loop as outpatient. Will continue to monitor tele. I dis spend at least 30 minutes today with patient and answering all questions and formulating plan of care. Discussion w patient/family: The assessment and plan as outlined above was discussed with the patient and/or family members who expressed understanding and agreement. All questions were answered. Thank you for involving us in the care of your patient. Please call with any questions. Subjective Principal diagnosis: Seizure, 3rd degree AVB, Syncope Interval history: Patient denies any chest pain, shortness of breath, palpitations. Denies any recurrent seizure-like activity. Reports right groin soreness. Patient and anxious regarding potential need for permanent pacemaker. Confirms recently started on Vimpat within the past 30 days. Reports hospitalizations at [facility] over the past 3 years during 14 episodes of "seizure episodes of ". They deny any awareness to any previous heart block or potential need for pacemaker. Objective Vital Signs, Last 4 Hours Temp Pulse Resp BP Pulse Ox 08/28/16 10:00 81 16 119/63 95 08/28/16 09:00 75 20 123/78 95 08/28/16 08:00 71 16 132/80 97 08/28/16 07:27 98.3 F 71 16 118/78 95 General: Conversant, No Apparent Distress HEENT: Atraumatic, Normocephaly, Mucus Membranes Moist Neck: No JVD, Normal carotid pulses Cardiac: Reg Rate and Rhythm, Normal S1 and S2, No Murmur Lungs: Normal Breath Sounds, No Wheeze, Rales, Rhonchi Neuro: Alert and responsive, No focal deficits noted, Other (anxious) Abdomen: Soft, Non-Tender Skin: No rashes noted on visualized skin, Other (Right groin dressing site trying intact with temporal pacer in place with settings at 60) Musculoskeletal: No Chest Wall Tenderness Extremities: No Edema, Normal Pulses Results 08/28/16 03:00 08/28/16 03:00 Lab Results - Imaging and Cardiology Echo: report reviewed Cardiac cath: report reviewed - EKG Interpretation EKG results cardiology: other (24-hour telemetry reviewed with average heart rate 78, no significant events noted, brief episodes of ventricular pacing noted in the morning hours with heart rate at 60, currently sinus rhythm in the 70s on telemetry) Consult Discharge Plan - Plan Referrals: Jethro Garcia [Primary Care Provider] -
--- NOTE | 2016-08-28 10:56 | EEG/EMG/Oth Biometrics Report ---
EEG Procedure Report Date of procedure: 08/28/16 EEG Procedure: Routine EEG Procedure Note: This EEG was acquired with standard international 10-20 system with EKG recording. The background EEG activity was characterized by the presence of posterior dominant alpha rhythm with the best frequency up to 12 Hz.. The background activity was reactive to eye openings. Sleep stages were characterized by the presence of background fragmentation, vertex waves, K complexes, and sleep spindles. There are no electrographic seizures identified during this tracing. There are no epileptiform discharges and focal slowing noted during this recording. Photic stimulation produced no abnormalities. Hyperventilation procedure was not performed EKG tracing showed no significant cardiac dysrhythmia. Impression: This is essentially a normal awake and asleep EEG. Clinical Correlation: Normal EEGs, however, do not exclude epilepsy. Clinical correlation advised.
[2016-08-28] MEDS: Budesonide/Formoterol 80/4.5 MDI IH SCH ×2 (11:01→22:39)
--- NOTE | 2016-08-28 11:41 | Event Note ---
Date of Encounter: 08/28/16 Time of Encounter: 11:40 - Cardiology Event Note Per discussion with Dr. Ragland, will turn off temporary pacer for now and monitor.
--- NOTE | 2016-08-28 14:33 | Event Note ---
Date of Encounter: 08/28/16 Time of Encounter: 14:20 - Cardiology Event Note Remains SR. Seen with Dr. Ragland and temp pacer removed. Ok to transfer to floor today if remains stable. Possible DC to home tomorrow om ECAT assuming no need for pacer on tele overnight. Will resume 1/2 dose zoloft-- has been on for years with no known issues.
--- NOTE | 2016-08-28 14:40 | Internal Med Progress Note ---
Date of Encounter: 08/28/16 Time of Encounter: 14:38 - Assessment and plan (1) AV block, 3rd degree Current Visit: Yes Status: Acute Assessment and plan: likely caused by Vimpat Hold Vimpat temporary pacemaker removed per cardiology Cardiac cath without findings consider permanent pacemaker if not improving while being of Vimpat We require external cardiac ambulatory telemetry versus loop upon discharge (2) Hypotension Current Visit: Yes Status: Acute Assessment and plan: Likely secondary to symptomatic bradycardia due to complete heart block with hemodynamic instability Chest x-ray - possible mild pulmonary edema Qualifiers: Hypotension type: unspecified hypotension type Qualified Code(s): I95.9 - Hypotension, unspecified (3) Seizure disorder Current Visit: Yes Status: Chronic Assessment and plan: Continue Keppra follow neurology recommendations Vimpat discontinued (4) Weakness Current Visit: Yes Status: Acute (5) Asthma Current Visit: Yes Status: Chronic Assessment and plan: Stable, no exacerbation Qualifiers: Asthma severity: mild intermittent Asthma complication type: uncomplicated Qualified Code(s): J45.20 - Mild intermittent asthma, uncomplicated (6) Depression Current Visit: Yes Status: Acute Assessment and plan: takes Zoloft at home, may cause arrhythmias Resumed Zoloft at half of the dose Qualifiers: Depression Type: major depressive disorder Major depression recurrence: recurrent Active/Remission status: currently active Major depression episode severity: mild Qualified Code(s): F33.0 - Major depressive disorder, recurrent, mild - Subjective Interval history: Plaints of mild discomfort in the right groin. Denies any CP or SOB, no fever, no no dysuria, has not had a seizure since admission , says he is not very compliant with his meds - Constitutional Vitals: Temp Pulse Resp BP Pulse Ox 98.3 F 81 20 121/80 96 08/28/16 07:27 08/28/16 12:00 08/28/16 12:00 08/28/16 12:00 08/28/16 12:00 General appearance: Present: mild distress, A&O X 3, pleasant, answers questions appropriately - Head Head exam: Present: atraumatic, normocephalic - Eye Eye exam: Present: PERRL, conjuntiva pink, sclera anicteric Pupils: Present: PERRL - Neck Neck exam general surgery: Present: supple, trachea midline. Absent: lymphadenopathy - Respiratory Respiratory exam: Present: CTAB. Absent: accessory muscle use, rales, rhonchi, wheezes - Cardiovascular Cardiovascular exam: Present: RRR, +S1, +S2. Absent: diastolic murmur, gallop, rubs, systolic murmur - GI/Abdominal GI/Abdominal exam: Present: normal bowel sounds, soft, no peritoneal signs. Absent: distended, tenderness - Extremities Exam Extremities exam: Present: warm, radial pulses palpable and symetrical. Absent : calf tenderness, cyanotic, pedal edema Additional comments: Right groin wound with no hematoma - Neurological Exam Neurological exam: Present: CN II-XII intact, oriented X3, no focal deficits. Absent: pronater drift, facial droop, speech deficit - Skin Skin exam: Present: dry, intact Internal Medicine: Result - Labs CBC & Chem 7: 08/28/16 03:00 08/28/16 03:00 Labs: Short CBC 08/28/16 Range/Units 03:00 WBC 6.7 (4.3-11.1) K/mcL Hgb 12.4 L (12.9-16.9) g/dL Hct 37.1 L (37.5-50.1) % Plt Count 123 L (140-400) K/mcL BMP 08/28/16 03:00 Sodium 140 Potassium 3.6 Chloride 109 Carbon Dioxide 25 BUN 10 Creatinine 0.98 Glucose 103 H Calcium 8.5 L Urine 08/27/16 Range/Units 19:40 Urine Color Yellow (Yellow) Urine Clarity Clear (Clear) Urine pH 7.0 (5.0-8.0) pH Units Ur Specific [place] 1.020 (1.010-1.025) Urine Protein Trace (Neg-Trace) mg/dL Urine Glucose (UA) Normal (Normal) mg/dL - ABG Interpretation ABG results: PT/INR, D-dimer PT 12.3 Seconds (9.4-12.1) H 08/26/16 21:55 Consult Discharge Plan - Plan Referrals: Jethro Garcia [Primary Care Provider] -
[2016-08-28] MEDS ORDERED: Acetaminophen 325 MG TABLET PO PRN (19:22)
[2016-08-28] MEDS ORDERED: Naloxone 0.4 MG/ML INJ IVP PRN (19:22)
[2016-08-28] MEDS ORDERED: Famotidine 20 MG TABLET PO SCH (21:00)
[2016-08-28] MEDS: Famotidine 20 MG TABLET PO SCH (21:47)
[2016-08-29] MEDS ORDERED: *HR* Heparin 5,000 UNIT/ML VIAL SQ SCH (06:00)
[2016-08-29] MEDS ORDERED: levETIRAcetam 250 MG TABLET PO SCH (06:00)
--- NOTE | 2016-08-29 08:24 | Cardiology Progress Note ---
Date of Encounter: 08/29/16 Time of Encounter: 08:20 Assessment and Plan (1) Seizure disorder Current Visit: Yes Status: Chronic Per Cardiology: Patient with reported 14 different seizure episodes roughly over past 3 years. Follows with Neurology in [place]. Recently decreased dose of Keppra d/t suspected side effects and initiation of Vimpat over the past 30 days. Patient has patient outpatient neurology appointment and further testing scheduled for this week. Patient and report symptoms from this previous week and similar to previous events with positive seizure-like activity and loss of bowel and bladder. Patient experienced weakness, chest tightness and syncope. No further recurrence noted during hospitalization. Neurology following. Remains off Vimpat. EEG: "Impression: This is essentially a normal awake and asleep EEG. Clinical Correlation: Normal EEGs, however, do not exclude epilepsy. Clinical correlation advised". Further management per Neuro. (2) AV block, 3rd degree Current Visit: Yes Status: Acute Per Cardiology: Patient presented with bradycardia, 3rd degree AVB. Per records, cath showed no signifcant lesions requiring intervention (normal coronary angiogram). Temporary pacer out since yesterday-- tele with no events. Outside records show no previous evidence of AVB. Recommend dc to home with 4 week ECAT. Discussed with Dr. Ragland whom agrees with plan. All questions answered, will s/o, re- consult PRN, f/u scheduled. Discussion w patient/family: The assessment and plan as outlined above was discussed with the patient and/or family members who expressed understanding and agreement. All questions were answered. Thank you for involving us in the care of your patient. Please call with any questions. Subjective Principal diagnosis: Seizure, 3rd degree AVB, Syncope Interval history: Patient denies any chest pain, shortness of breath, palpitations. Denies any recurrent seizure-like activity. Reports right groin soreness. reports mild dizziness with turning in bed and with sitting to lying. Denies any dizziness while walking. Objective Selected Entries 08/29/16 03:38 08/29/16 07:30 Temperature 98.3 F Pulse Rate 82 Respiratory Rate 16 Blood Pressure 113/70 O2 Sat by Pulse Oximetry 96 Oxygen Delivery Method Room Air Laboratory Tests 08/26/16 08/27/16 08/27/16 22:48 05:45 11:50 Troponin I 0.00 0.03 0.07 H* General: Conversant, No Apparent Distress Cardiac: Reg Rate and Rhythm, Normal S1 and S2, No Murmur Lungs: Normal Breath Sounds, No Wheeze, Rales, Rhonchi Neuro: Alert and responsive, No focal deficits noted Skin: No rashes noted on visualized skin, Other (R groin site mild ecchymosis, no bleeding, no hematoma) Extremities: No Edema, Normal Pulses Results 08/28/16 03:00 08/28/16 03:00 Active Medications Acetaminophen (Tylenol) 650 mg PO Q6HR PRN PRN Reason: Pain Stop: 02/26/17 20:54 Albuterol Sulfate (Albuterol Inhaler) 1 puff IH QIDR [place] Stop: 02/26/17 05:01 Last Admin: 08/29/16 03:18 Dose: Not Given Budesonide/Formoterol Fumarate (Symbicort) 1 puff IH BIDRESP [place] PRN Reason: Protocol Stop: 02/26/17 10:01 Last Admin: 08/28/16 22:39 Dose: 1 puff Famotidine (Pepcid) 20 mg PO BID [place] PRN Reason: Protocol Stop: 02/27/17 21:01 Last Admin: 08/28/16 21:47 Dose: 20 mg Heparin Sodium (Porcine) (Heparin) 5,000 unit SQ Q12HCO [facility] Stop: 02/26/17 06:01 Last Admin: 08/29/16 06:03 Dose: 5,000 unit Levetiracetam (Keppra) 1,000 mg PO Q12HR [place] Stop: 02/26/17 18:01 Last Admin: 08/29/16 06:02 Dose: 1,000 mg Naloxone HCl (Narcan) 0.4 mg IVP Q2MIN PRN PRN Reason: Opioid Reversal Stop: 02/25/17 23:44 Sertraline HCl (Zoloft) 100 mg PO DAILY [facility] Stop: 02/27/17 14:46 - EKG Interpretation EKG results cardiology: other (Tele reviewed past 12 hrs with avg HR 78, minimum HR 56, SR with rare PACs, no significant pauses or AV block noted) Consult Discharge Plan - Plan Referrals: Jethro Garcia [Primary Care Provider] -
[2016-08-29] MEDS: Famotidine 20 MG TABLET PO SCH (09:09)
[2016-08-29 09:14] VITALS: BP 131/88
--- NOTE | 2016-08-29 09:49 | Discharge Summary ---
Date of Encounter: 08/29/16 Time of Encounter: 09:47 - Discharge Diagnosis (1) AV block, 3rd degree Priority: Primary Status: Acute (2) Seizure disorder Priority: Secondary Status: Chronic - Discharge Medications Home Medications: Albuterol Sulfate [Proair Hfa] 2 puff IH QID PRN 08/26/16 [History] Budesonide/Formoterol 80/4.5 [Symbicort 80/4.5] 2 puff IH BID 08/26/16 [History ] Sertraline [Zoloft] 200 mg PO DAILY 08/26/16 [History] LevETIRAcetam [Keppra] 1,000 mg PO BID 08/27/16 [History] Allergies/Adverse Reactions: Allergies No Known Allergies Allergy (Verified 08/26/16 22:04) Procedures/tests Complete & Pending: Procedures Performed prior 72 hours Category Date Time Status ECG ecat monitor [ECG] Routine Y 08/29/16 08:30 Ordered EV echocardiogram Routine Y 08/27/16 01:08 Completed Date of admission: 08/26/16 23:43 Primary care physician: Jethro Garcia Consults: 08/26/16 23:50 Consult to Neurology [CONS] Routine Consulting Provider: Neu[facility] Reason for Consult: seizures Call Completed: No 08/27/16 00:51 Consult to Cardiology [CONS] Routine Comment: Consulting Provider: Diamante Pérez Reason for Consult: Complete heart block Call Completed: Yes 08/28/16 11:37 Consult to Interpret Exam [CONS] Routine Consulting Provider: Clemente Cody Consult to Interpret Exam: Interpret EEG Discharging clinician: Kayla Cain Anticipated date of discharge: 08/29/16 - Patient Status Disposition: Home, Self-Care Condition: Good Functional capacity at discharge: independent ambulation Overall status at discharge: patient is back to baseline - Discharge Instructions Follow Up With: Jethro Garcia [Primary Care Provider] - 09/08/16 8:00 am Hernandez Chan CNP [Advanced Practice Nurse] - (cardiology makes their own appointments, and will call the patient at home) Jose Ragland MD [Partnered Physician] - (Cardiology will call patient for follow up.) Clemente Cody MD [Partnered Physician] - 10/24/16 9:00 am - Diet and Activity Activity: resume usual activities as tolerated Diet: advance to your usual diet Interval History: Mr. Sims is a 51 year old male seen in the ED with bradycardia to 22/min with weakness and dizziness and syncope. Was in Complete AV block. cardio was consulted. Had some chest pain and pressure so in addition to the pacemaker left heart cath was performed. The coronaies were with right dominance. . LV size and function normal with EF 55% Temporary pacer was placed until Vimpat was washed out of pete system, it was taken out since yesterday-- tele with no events. Outside records show no previous evidence of AVB. Recommend dc to home with 4 week ECAT. Patient with reported 14 different seizure episodes roughly over past 3 years. Follows with Neurology in [place]. Recently decreased dose of Keppra d/t suspected side effects and initiation of Vimpat over the past 30 days. Patient has patient outpatient neurology appointment and further testing scheduled for this week. Patient and report symptoms from this previous week and similar to previous events with positive seizure-like activity and loss of bowel and bladder. Patient experienced weakness, chest tightness and syncope. No further recurrence noted during hospitalization. Neurology was consulted , recommend dc Vimpat due to concerns of 3rd degree block and contiue keppra 750bid for now. EEG: "Impression: This is essentially a normal awake and asleep EEG. Clinical Correlation: Normal EEGs, however, do not exclude epilepsy. Clinical correlation advised". tha is being dc as OP and will f/u with his [employer] [employer] and nuerologist as OP. Hospital course: Mr. Sims is a 51 year old male - Time Spent with Patient Total time spent providing and/or coordinating discharge services: - Constitutional Vitals: Temp Pulse Resp BP Pulse Ox 97.9 F 78 18 131/88 98 08/29/16 07:30 08/29/16 07:30 08/29/16 07:30 08/29/16 07:30 08/29/16 07:30 General appearance: Present: mild distress, A&O X 3, pleasant, answers questions appropriately Exam: HEENT: Atraumatic, Normocephaly, Mucus Membranes Moist Neck: No JVD, Normal carotid pulses Cardiac: Reg Rate and Rhythm, Normal S1 and S2, No Murmur Lungs: Normal Breath Sounds, No Wheeze, Rales, Rhonchi Neuro: Alert and responsive, No focal deficits noted, Other (anxious) Abdomen: Soft, Non-Tender Skin: No rashes noted on visualized skin, Musculoskeletal: No Chest Wall Tenderness Extremities: No Edema, Normal Pulses
[2016-08-29] MEDS: Budesonide/Formoterol 80/4.5 MDI IH SCH (10:35)
== END 2016-08-29 11:21 | disposition home or self-care (01) | DRG 287 ==
LOC: ICNU 21:31 → EMEROO 21:31 → SUATTDRO 23:43 → ICNU 23:50 → UNDODISIN 08-28 18:04 → 2NNU 08-28 18:50
PROVIDERS: ADMIT Family Medicine; ATTEND Internal Medicine